=== PATIENT | male | born 1960 | race Two or more races ===

== ENCOUNTER → 2024-03-29 | Outpatient (CLI) | payer MEDICAID ==
[~2024-03-29] VITALS: Ht 170.2 cm; Wt 108.9 kg
[~2024-03-29] MED LIST: REGADENOSON 0.4 MG/5 ML SYRG IV ONE
[2024-03-29] MEDS: REGADENOSON 0.4 MG/5 ML SYRG IV ONE (08:46)
== END | disposition home or self-care (01) ==
LOC: XYW 07:29
PROVIDERS: ATTEND Specialist
DX: R00.1 Bradycardia, unspecified (principal); R07.9 Chest pain, unspecified; E83.52 Hypercalcemia; E78.5 Hyperlipidemia, unspecified; I10 Essential (primary) hypertension; I25.10 Atherosclerotic heart disease of native coronary artery without angina pectoris
CPT/HCPCS: 78452; 93017; A9500; J2785

== ENCOUNTER → 2024-05-23 | Outpatient (CLI) | payer MEDICAID ==
[~2024-05-23] VITALS: Ht 170.2 cm; Wt 108.9 kg
[~2024-05-23] MED LIST changes: +ADENOSINE 91 MG in GIVE UN-DILUTED 0 ML IV STA; -REGADENOSON 0.4 MG/5 ML SYRG IV ONE
== END | disposition home or self-care (01) ==
LOC: XYW 09:07
PROVIDERS: ATTEND Specialist
DX: Z53.9 Procedure and treatment not carried out, unspecified reason (principal); I10 Essential (primary) hypertension; E78.5 Hyperlipidemia, unspecified
CPT/HCPCS: J0153

== ENCOUNTER 2024-09-14 08:09 | Day surgery (SDC) | payer MEDICAID ==
[~2024-09-14] VITALS: Ht 170.2 cm; Wt 111.1 kg
[~2024-09-14 08:09] MED LIST changes: +ACET-1881 PO; -ADENOSINE 91 MG in GIVE UN-DILUTED 0 ML IV STA; +ALLO100T PO; +AMLO1TAB22 PO; +ASPI-543 PO; +ATEN100T PO; +ATOR40TA52 PO; +CETI5SOL52 PO; +CHOL20007 PO; +CITA-77 PO; +DICY-89 PO; +HYDR-4902 PO; +LISI40TA16 PO; +METF-370 PO; +MULT-1018 PO; +NITR0.4S29 SL; +OMEG1CHW2 PO; +OMEP20TA PO
[2024-09-14] MEDS ORDERED: MIDAZOLAM HCL 2MG/2ML 2ml VIAL (1mg/ml) ONE (11:21)
[2024-09-14] MEDS ORDERED: GLYCOPYRROLATE 0.2 MG/ML 1ML VIAL ONE (11:23)
[2024-09-14] MEDS ORDERED: PROPOFOL 10 MG/ML 20 ML IV ONE ×2 (11:23→12:23)
[2024-09-14] MEDS ORDERED: ONDANSETRON HCL 4 MG/2 ML VIAL ONE (11:23)
--- NOTE | 2024-09-14 11:30 | DVHHP2 ---
GI H&P Pre-Op Assessment Date: 09/14/24 Chief complaint: colon cancer screening HPI: per clinic note Past medical history: per clinic note Past surgical history: per clinic note Family history: per clinic note Physical exam: General: NAD, AAOX3 HEENT: PERRL, no scleral icterus, normal hearing, gums without lesions or bleeding, oropharynx clear without erythema or exudate. Neck: Supple without enlargement of the thyroid, or lymphadenopathy. Chest: Normal size and shape, no tenderness, lung alexis clear to auscultation and percussion, nonlabored breathing. Heart: RRR, no murmur Abdomen: non-distended, no tenderness to palpation, +BS, no hepatosplenomegaly Extremities: no edema Neurological: CN II-XII intact, sensation intact in all extremities, 5+ strength in all extremities Skin: No rashes, No jaundice Assessment: - colon cancer screening Plan: - Colonoscopy - Risks (bleeding, infection, perforation, reaction to sedation medications and cardiopulmonary arrest) and benefit of the procedure were explained to patient. Patient agrees to undergo the procedure. DOMITILA VENEGAS MD Sep 14, 2024 11:30
[2024-09-14] MEDS ORDERED: MEPERIDINE HCL (25 MG/ML) 1ML VIAL ONE (12:19)
[2024-09-14 12:27] VITALS: PULSE 57; RESP 12; TEMP 97; O2SAT 96
--- NOTE | 2024-09-14 12:29 | DVHOP2 ---
Operative Report DATE OF OPERATION: 09/14/24 PROCEDURE: Colonoscopy. PREOPERATIVE INDICATION: The patient is a 64 -year-old male undergoing colonoscopy for colon cancer screening. POSTOPERATIVE DIAGNOSES: 1. 2 cm descending colon polyp was removed with hot snare in piecemeal process. The pieces of the polyps were retrieved. Three clips was applied to the polypectomy site to prevent bleeding. 2. 2 mm sigmoid polyp was removed with cold biopsy forceps. 3. 2 cm rectal polyp was removed with hot snare. The polyp was retrieved. There was bleeding at the polypectomy site that was stopped with three clips and cauterization. 4. Internal hemorrhoids PROCEDURE PERFORMED BY: Ming Gongora M.D. SCOPE: Olympus videocolonoscope. ASA CLASS: 3 PREOPERATIVE MEDICATIONS: MAC with Dr López PROCEDURE IN DETAIL: After obtaining an informed consent, the patient was placed on left lateral decubitus position. He was then sedated with the above medications. A rectal examination was performed that was normal. The colonoscope was then passed through the anus into the rectosigmoid and through the descending, transverse, and ascending colon up to the cecum with visualization of the appendiceal orifice, base of the cecum and the ileocecal valve. A 2 cm descending colon polyp was removed with hot snare in piecemeal pr ocess. The pieces of the polyps were retrieved. Three clips was applied to the polypectomy site to prevent bleeding. A 2 mm sigmoid polyp was removed with cold biopsy forceps. A 2 cm rectal polyp was removed with hot snare. The polyp was retrieved. There was bleeding at the polypectomy site that was stopped with three clips and cauterization. There were internal hemorrhoids. The colonoscope was then withdrawn. The patient tolerated the procedure well without difficulty. WITHDRAWAL TIME: 30 minutes QUALITY OF THE PREP: Marion Bowel Prep score: 7 COMPLICATIONS : None SPECIMENS: Colon polyps DISPOSITION: D/C to home PLAN: 1. Repeat colonoscopy base on biopsy result. Even if the biopsy is normal, patient will need repeat colonoscopy in one year due to the large size of the polyps. MING GONGORA MD Sep 14, 2024 12:29
--- NOTE | 2024-09-14 12:30 | DVHDS2 ---
Physician Discharge Progress N Final Diagnosis: Colon polyps Operations or Procedures: Operations or Procedures Colonoscopy with hot snare polypectomy and cold biopsy polypectomy and clipping Condition on Discharge: Good Disposition: Home Discharge Instructions: Diet: Regular Activity: No Restrictions, As Tolerated Medications: Hold aspirin for five days. Follow Up Care: Discharge Statement: "Patient was advised to return to the ER or call 911 if any headaches, dizziness, shortness of breath, chest pain, abdominal pain, bleeding, fevers, or worsening of medical condition. Patient was counseled about treatment plan, medications, possible side effects, patientverbalized understanding. All questions were answered to the best of my ability. This discharge took greater then 30 minutes in planning, reviewing documentation, counseling the patient, and discussing with other team members." DOMITILA VENEGAS MD Sep 14, 2024 12:30
[2024-09-14 12:37] VITALS: PULSE 54; RESP 14; O2SAT 99
== END 2024-09-14 13:00 | disposition home or self-care (01) ==
LOC: GI 08:09
PROVIDERS: ATTEND Internal Medicine Gastroenterology
DX: Z12.11 Encounter for screening for malignant neoplasm of colon (principal); D12.4 Benign neoplasm of descending colon; D12.5 Benign neoplasm of sigmoid colon; D12.8 Benign neoplasm of rectum; K64.8 Other hemorrhoids; I10 Essential (primary) hypertension; I25.10 Atherosclerotic heart disease of native coronary artery without angina pectoris; E11.9 Type 2 diabetes mellitus without complications; E78.5 Hyperlipidemia, unspecified; G89.29 Other chronic pain; E66.9 Obesity, unspecified; Z68.38 Body mass index [BMI] 38.0-38.9, adult; Z79.82 Long term (current) use of aspirin; Z79.899 Other long term (current) drug therapy; Z98.61 Coronary angioplasty status
CPT/HCPCS: 45380; 45385; 82962; 88305; J2175; J2250; J2405; J2704; J7030